=== PATIENT | male | born 1970 | race Caucasian/White ===

== ENCOUNTER 2018-09-26 10:48 | Outpatient (REF) | payer OTHER, SELFPAY ==
[2018-09-26 13:18] LABS: Anion Gap 6.5 mmol/L (3-11); BUN 15 mg/dL (7-18); CO2 29.5 mmol/L (21.0-32.0); CREATININE 0.98 mg/dL (0.70-1.30); Calcium 8.9 mg/dL (8.5-10.1); Chloride 107 mmol/L (98-107); Cholesterol 200 mg/dL (50-200); Glucose 107 mg/dL (70-100); HDL Cholesterol 53 mg/dL (40-60); LDL CHOLESTEROL 128 mg/dL (<100); Potassium 4.7 mmol/L (3.5-5.1); Sodium 143 mmol/L (136-145); Triglyceride 58 mg/dL (30-150)
== END 2018-09-26 11:08 ==
LOC: NCHCN 10:48
PROVIDERS: PCP Nurse Practitioner Family; Visit Provider Nurse Practitioner Family
DX: I10 Essential (primary) hypertension (principal)
CPT/HCPCS: 80048; 80061; 83721

== ENCOUNTER 2018-12-07 10:55 | Outpatient (REF) | payer OTHER, SELFPAY ==
[2018-12-07 19:19] LABS: ALT 34 U/L (12-78); AST 25 U/L (15-37); Albumin 3.9 g/dL (3.4-5.0); Alkaline Phosphatase 78 U/L (46-116); Anion Gap 10.4 mmol/L (3-11); BUN 15 mg/dL (7-18); Bilirubin, Total 1.1 mg/dL (0.2-1.0); CO2 27.6 mmol/L (21.0-32.0); CREATININE 0.99 mg/dL (0.70-1.30); Calcium 9.2 mg/dL (8.5-10.1); Chloride 101 mmol/L (98-107); Glucose 86 mg/dL (70-100); Potassium 4.2 mmol/L (3.5-5.1); Sodium 139 mmol/L (136-145); Total Protein 7.1 g/dL (6.4-8.2)
== END 2018-12-07 11:15 ==
LOC: NCHCN 10:55
PROVIDERS: PCP Nurse Practitioner Family; Visit Provider Nurse Practitioner Family
DX: I10 Essential (primary) hypertension (principal)
CPT/HCPCS: 80053

== ENCOUNTER 2019-03-24 11:05 | Day surgery (SDC) | payer OTHER, SELFPAY ==
[2019-03-24 11:16] VITALS: BP 128/90; PULSE 68; RESP 18; TEMP 36.7; O2SAT 98
[2019-03-24] MEDS: Lactated Ringers 1,000 ML 80 ML IV (11:20)
--- NOTE | 2019-03-24 12:18 | W.PM.DSUDISC ---
Discharge Plan Disposition Patient Disposition: HOME Condition: Good Discharge Details Reason For Visit: Colonoscopy Attending Provider: Dianna Jones Primary Care Provider: Cesar Davidson Home Meds and New Rx's Prescriptions: Continued lisinopril 10 mg tablet 10 mg PO DAILY RF: 0 omega-3 fatty acids [Fish Oil Concentrate] 1,000 mg capsule 1,000 mg PO DAILY RF: 0 aspirin [Adult Low Dose Aspirin] 81 mg tablet,delayed release (DR/EC) 81 mg PO DAILY RF: 0 Discharge Instructions Additional Instructions: Your colonoscopy was normal. Plan for screening in 10 years. Activity:: Activity as Tolerated Diet:: As Tolerated Discharge Orders Discharge Orders: Discharge Order (Routine); Ordered 03/24/19 Ordered By: Dianna Jones DS: Diagnosis Discharge Diagnosis (1) Encounter for screening colonoscopy: Start date: 03/24/19 Start time: 12:19 Status: Acute (2) S/P colonoscopy:
[2019-03-24 12:50] VITALS: BP 129/88; PULSE 52; RESP 16; TEMP 36.8; O2SAT 99
--- NOTE | 2019-03-27 10:00 | COLE_ITS ---
DATE OF PROCEDURE: March 24, 2019 PREOPERATIVE DIAGNOSIS: Screening colonoscopy. POSTOPERATIVE DIAGNOSIS: Normal colon. PROCEDURE: Colonoscopy. SURGEON: Dianna Jones M.D. ANESTHESIA: Monitored Anesthesia Care. INDICATIONS: This is a 48-year-old man who presents for his first screening colonoscopy. He is asym ptomatic and has no family history of colon cancer. PROCEDURE: He was placed in the left Langford position. Propofol was titrated to sedation. Digital rec erika examination revealed no abnormalities. The scope was advanced to the cecum without difficulty. The ileocecal valve was briefly intubated to reveal a normal distal ileum. His prep was excellent. The scope was slowly withdrawn with no abnormalities seen within the ascending, transverse, descendin g, sigmoid colon or rectum, including on retroflex view. Total withdrawal time was greater than six minutes. He tolerated the procedure well and was stable to recovery. He will need a follow-up scree sandra again in ten years, or sooner if symptoms indicate. cc: Richelle Peterson N.P.
== END 2019-03-24 13:07 | disposition home or self-care (01) ==
PROVIDERS: PCP Nurse Practitioner Family; Visit Provider Surgery
PROC: 0DJD8ZZ Inspection of Lower Intestinal Tract, Via Natural or Artificial Opening Endoscopic (ICD-10-PCS; CPT 45378; principal; 2019-03-24 12:00)
DX: Z12.11 Encounter for screening for malignant neoplasm of colon (principal); I10 Essential (primary) hypertension
CPT/HCPCS: 45378

== ENCOUNTER 2019-10-12 09:51 | Outpatient (REF) | payer OTHER, SELFPAY ==
[2019-10-12 11:36] LABS: PROTEIN 12.2 mg/dL
[2019-10-12 11:42] LABS: COMMENT (LAB VIEW ONLY) 195.96 mg/dL; Prot/Crea Ur Ratio 0.06
[2019-10-12 11:44] LABS: COMMENT (LAB VIEW ONLY) 195.52 mg/dL; Microalb ug/mg Crea 4.4 ug/mg Cr
== END 2019-10-12 10:11 ==
LOC: NCHCN 09:51
PROVIDERS: PCP Nurse Practitioner Family; Visit Provider Nurse Practitioner Family
DX: I10 Essential (primary) hypertension (principal)
CPT/HCPCS: 82043; 82565; 82570; 84156

== ENCOUNTER 2019-10-25 10:41 | Outpatient (CLI) | payer OTHER, SELFPAY ==
--- NOTE | 2019-10-25 | DI.RAD_ITS ---
EXAM: XR CHEST 2V PA LATERAL CLINICAL HISTORY: COUGH, R05 TECHNIQUE: 2D digital imaging was performed. COMPARISON: No exams were available for comparison FINDINGS: MEDIASTINUM: Normal. HEART: Normal. PULMONARY VASCULATURE: Normal. LUNGS: Clear. PLEURAL SPACE: No pleural effusion or pneumothorax. BONE:Normal. OTHER FINDINGS:Normal. IMPRESSION: No acute pulmonary findings. DATA REPOSITORY: RADIATION DOSE DELIVERED:
== END 2019-10-25 11:01 ==
PROVIDERS: PCP Nurse Practitioner Family; Visit Provider Nurse Practitioner Family
DX: R05 Cough (principal)
CPT/HCPCS: 71046

== ENCOUNTER 2020-12-26 16:46 | Outpatient (REF) | payer OTHER, SELFPAY ==
[2020-12-26 19:35] LABS: ALT 55 U/L (16-63); AST 25 U/L (15-37); Alkaline Phosphatase 90 U/L (46-116); Anion Gap 10.1 mmol/L (3-11); BUN 15 mg/dL (7-18); Bilirubin, Total 0.6 mg/dL (0.2-1.0); CO2 26.9 mmol/L (21.0-32.0); Calculated LDL 134 mg/dL (<100); Chloride 104 mmol/L (98-107); Cholesterol 212 mg/dL (<200); Glucose 98 mg/dL (74-106); HDL Cholesterol 40 mg/dL (40-60); Potassium 4.4 mmol/L (3.5-5.1); Sodium 141 mmol/L (136-145); TSH (W/Ref FT4) 2.68 uIU/mL (0.36-3.74); Total Protein 7.2 g/dL (6.4-8.2); Triglyceride 190 mg/dL (<150)
[2020-12-30 10:00] LABS: HIV-1/2 Ag & Ab Screen Negative (Negative)
[2020-12-30 10:08] LABS: Hepatitis C Ab w Rflx HCV PCR Negative (Negative)
== END 2020-12-26 16:47 | disposition home or self-care (01) ==
LOC: NCHCN 16:46
PROVIDERS: PCP Nurse Practitioner Family; Visit Provider Nurse Practitioner Family
DX: Z00.00 Encounter for general adult medical examination without abnormal findings (principal); I10 Essential (primary) hypertension; Z11.4 Encounter for screening for human immunodeficiency virus [HIV]; R63.5 Abnormal weight gain; Z11.59 Encounter for screening for other viral diseases
CPT/HCPCS: 80053; 80061; 86803; 87389; 84443

== ENCOUNTER 2021-12-23 17:18 | Outpatient (REF) | payer OTHER, SELFPAY ==
[2021-12-23 19:14] LABS: Anion Gap 4.4 mmol/L (3-11); BUN 16 mg/dL (7-18); CO2 30.6 mmol/L (21.0-32.0); CREATININE 0.8 mg/dL (0.70-1.30); Calcium 8.6 mg/dL (8.5-10.1); Calculated LDL 157 mg/dL (<100); Chloride 105 mmol/L (98-107); Cholesterol 224 mg/dL (<200); Glucose 98 mg/dL (74-106); HDL Cholesterol 54 mg/dL (40-60); Potassium 4.2 mmol/L (3.5-5.1); Sodium 140 mmol/L (136-145); Triglyceride 65 mg/dL (<150)
[2021-12-24 18:37] LABS: PSA, Screening 0.6 ng/mL (<=3.5)
== END 2021-12-23 17:19 | disposition home or self-care (01) ==
LOC: NCHCN 17:18
PROVIDERS: PCP Nurse Practitioner Family; Visit Provider Physician Assistant
DX: I10 Essential (primary) hypertension (principal); E78.5 Hyperlipidemia, unspecified; Z12.5 Encounter for screening for malignant neoplasm of prostate
CPT/HCPCS: 80048; 80061; 84153

== ENCOUNTER 2023-01-11 10:24 | Outpatient (REF) | payer OTHER, SELFPAY ==
[2023-01-11 17:49] LABS: ALT 32 U/L (16-63); AST 24 U/L (15-37); Alkaline Phosphatase 84 U/L (46-116); Anion Gap 8.2 mmol/L (3-11); BUN 16 mg/dL (7-18); Bilirubin, Total 0.9 mg/dL (0.2-1.0); CO2 28.8 mmol/L (21.0-32.0); CREATININE 0.9 mg/dL (0.70-1.30); Calcium 9.1 mg/dL (8.5-10.1); Calculated LDL 152 mg/dL (<100); Chloride 107 mmol/L (98-107); Cholesterol 218 mg/dL (<200); Estimated GFR 101.49 (mL/min/1.73m2); Glucose 104 mg/dL (74-106); HDL Cholesterol 50 mg/dL (40-60); Potassium 4.3 mmol/L (3.5-5.1); Sodium 144 mmol/L (136-145); Total Protein 7.4 g/dL (6.4-8.2); Triglyceride 83 mg/dL (<150)
[2023-01-11 22:54] LABS: PSA, Screening 0.7 ng/mL (<=3.5)
== END 2023-01-11 10:25 | disposition home or self-care (01) ==
LOC: NCHCN 10:24
PROVIDERS: Visit Provider Physician Assistant
DX: Z12.5 Encounter for screening for malignant neoplasm of prostate (principal); E78.5 Hyperlipidemia, unspecified
CPT/HCPCS: 80053; 80061; 84153

== ENCOUNTER 2023-02-17 20:32 | Outpatient (REF) | payer OTHER, SELFPAY ==
[2023-02-17 20:50] LABS: HCT 40.9 % (40.0-50.0); HGB 13.6 g/dL (13.5-17.5); MCH 28.3 pg (27.0-33.0); MCHC 33.3 % (32.0-36.0); MCV 85 fL (80-95); MPV 9.9 fL (8.0-11.0); Platelet Count 339 10^3/uL (130-400); RDW-SD 40.6 fL; WBC 9.58 10^3/uL (4.4-10.8)
[2023-02-17 21:11] LABS: ALT 49 U/L (16-63); AST 18 U/L (15-37); Albumin 3.8 g/dL (3.4-5.0); Alkaline Phosphatase 95 U/L (46-116); Anion Gap 9.3 mmol/L (3-11); BUN 17 mg/dL (7-18); Bilirubin, Total 0.9 mg/dL (0.2-1.0); CO2 25.7 mmol/L (21.0-32.0); CREATININE 1.1 mg/dL (0.70-1.30); Calcium 9.1 mg/dL (8.5-10.1); Chloride 103 mmol/L (98-107); Estimated GFR 79.77 (mL/min/1.73m2); Glucose 107 mg/dL (74-106); Potassium 3.9 mmol/L (3.5-5.1); Sodium 138 mmol/L (136-145); Total Protein 7.4 g/dL (6.4-8.2)
[2023-02-19 11:12] LABS: Lyme Ab w Rflx to Lyme Confirm Positive (Negative)
[2023-02-19 12:19] LABS: Lyme IgG Ab Negative (Negative); Lyme IgM Ab Positive (Negative)
[2023-02-21 17:59] LABS: B. miyamotoi PCR Negative (Negative); Babesia divergens/MO-1 Negative (Negative); Babesia duncani Negative (Negative); Babesia microti Negative (Negative); Ehrlichia chaffeensis Negative (Negative); Ehrlichia ewingii/canis Negative (Negative); Ehrlichia muris eauclairensis Negative (Negative)
[2023-02-21 18:55] LABS: Anaplasma phagocytophilum Positive (Negative)
== END 2023-02-17 20:33 | disposition home or self-care (01) ==
LOC: NCHCN 20:32
PROVIDERS: Visit Provider Physician Assistant
DX: R50.9 Fever, unspecified (principal)
CPT/HCPCS: 80053; 85027; 86617; 87798; 86618

== ENCOUNTER 2023-12-27 13:46 | Outpatient (REF) | payer OTHER, SELFPAY ==
[2023-12-27 16:29] LABS: Anion Gap 10.2 mmol/L (3-11); BUN 14 mg/dL (7-18); CO2 27.8 mmol/L (21.0-32.0); Calcium 9.3 mg/dL (8.5-10.1); Calculated LDL 168 mg/dL (<100); Chloride 106 mmol/L (98-107); Cholesterol 242 mg/dL (<200); Estimated GFR 88.88 (mL/min/1.73m2); Glucose 106 mg/dL (74-106); HDL Cholesterol 53 mg/dL (40-60); Potassium 4.5 mmol/L (3.5-5.1); Sodium 144 mmol/L (136-145); Triglyceride 107 mg/dL (<150)
[2023-12-28 09:27] LABS: PSA, Screening 0.9 ng/mL (<=3.5)
== END 2023-12-27 13:47 | disposition home or self-care (01) ==
LOC: NCHCN 13:46
PROVIDERS: PCP Physician Assistant; Visit Provider Physician Assistant
DX: Z12.5 Encounter for screening for malignant neoplasm of prostate (principal); I10 Essential (primary) hypertension
CPT/HCPCS: 80048; 80061; 84153

== ENCOUNTER 2025-01-29 12:44 | Outpatient (REF) | payer OTHER, SELFPAY ==
[2025-01-29 16:48] LABS: Anion Gap 7.2 mmol/L (3-11); BUN 12 mg/dL (7-18); CO2 26.8 mmol/L (21.0-32.0); Calculated LDL 164 mg/dL (<100); Chloride 104 mmol/L (98-107); Cholesterol 232 mg/dL (<200); Estimated GFR 88.33 (mL/min/1.73m2); Glucose 101 mg/dL (74-106); HDL Cholesterol 50 mg/dL (>or=40); Potassium 4.5 mmol/L (3.5-5.1); Sodium 138 mmol/L (136-145); Triglyceride 90 mg/dL (<150)
== END 2025-01-29 12:45 | disposition home or self-care (01) ==
LOC: NCHCN 12:44
PROVIDERS: PCP Physician Assistant; Visit Provider Physician Assistant
DX: Z12.5 Encounter for screening for malignant neoplasm of prostate (principal); I10 Essential (primary) hypertension
CPT/HCPCS: 80048; 80061; 84153